=== PATIENT | female | born 2000 | race American Indian/Alaskan Native ===

== ENCOUNTER 2019-04-18 22:20 | Emergency (ER) | payer OTHER ==
[2019-04-19] MEDS ORDERED: KETOROLAC 30 MG/1 ML INJ IM ONE (02:00)
[2019-04-19] MEDS ORDERED: LIDOCAINE-MPF (1%) 10 MG/1 ML VIAL 5 ML INFILTRATI ONE (02:00)
[2019-04-19] MEDS ORDERED: LIDOCAINE VISCOUS 2% 15 ML ORAL LIQD PO ONE (02:00)
[2019-04-19] MEDS ORDERED: dexAMETHasone 20 MG/5 ML VIAL IM ONE (02:00)
--- NOTE | 2019-04-19 02:42 | Emergency Department Report ---
ED General Adult HPI - General Chief complaint: Sore Throat Stated complaint: EXTREMLY SWOLLEN THROAT/TATIANA Source: patient Mode of arrival: Ambulatory Limitations: No Limitations - History of Present Illness Initial comments: Patient is a nulliparous 19-year-old -[place] female with no past medical history who presents to the ED with complaint of acute onset persistent severe sore throat with dysphagia for the last 2 weeks, worse in the last 3 days. Patient states that she has taken 2 rounds of oral antibiotics with no relief. Patient states that she initially took a 7-day course of Augmentin followed by a 5-day course of azithromycin and states that in the last 3 days his pain and swelling have worsened. Patient denies fever, chills, nausea, vomiting, dizziness, chest pain, shortness of breath, change in vision, syncope or headache. MD Complaint: Sore throat; dysphagia -: Sudden, week(s) (2) Location: mouth Radiation: non-radiation Severity scale (0 -10): 8 Quality: aching, sharp Consistency: constant Improves with: none Worsens with: other (swallowing) Associated Symptoms: denies other symptoms. denies: confusion, chest pain, cough, diaphoresis, fever/chills, headaches, loss of appetite, malaise, nausea/vomiting, rash, seizure, syncope, weakness, other Treatments Prior to Arrival: NSAID - Related Data Previous Rx's Medication Instructions Recorded Last Taken Type Clindamycin [Clindamycin CAP] 300 mg PO Q6HR #80 capsule 04/19/19 Unknown Rx Ibuprofen [Motrin] 400 mg PO Q8H PRN #24 tablet 04/19/19 Unknown Rx Lidocaine Viscous 2% 5 ml PO Q6H PRN #120 ml 04/19/19 Unknown Rx methylPREDNISolone [Medrol 4MG 4 mg PO DAILY #21 tab.ds.pk 04/19/19 Unknown Rx DOSEPAK (21 tabs)] Allergies Allergy/AdvReac Type Severity Reaction Status Date / Time No Known Allergies Allergy Unverified 04/18/19 22:42 ED Review of Systems ROS: Stated complaint: EXTREMLY SWOLLEN THROAT/TATIANA Other details as noted in HPI Constitutional: denies: chills, fever Eyes: denies: eye pain, eye discharge, vision change ENT: throat pain, congestion. denies: ear pain Respiratory: denies: cough, shortness of breath, SOB with exertion, SOB at rest, wheezing Cardiovascular: denies: chest pain, palpitations Endocrine: no symptoms reported Gastrointestinal: denies: abdominal pain, nausea, diarrhea Genitourinary: denies: urgency, dysuria, discharge Musculoskeletal: denies: back pain, joint swelling, arthralgia Skin: denies: rash, lesions Neurological: denies: headache, weakness, paresthesias Psychiatric: denies: anxiety, depression Hematological/Lymphatic: denies: easy bleeding, easy bruising ED Past Medical Hx - Past Medical History Previous Medical History?: No - Surgical History Past Surgical History?: No - Social History Smoking Status: Never Smoker Substance Use Type: None - Medications Home Medications: Home Medications Medication Instructions Recorded Confirmed Last Taken Type Clindamycin [Clindamycin CAP] 300 mg PO Q6HR #80 capsule 04/19/19 Unknown Rx Ibuprofen [Motrin] 400 mg PO Q8H PRN #24 tablet 04/19/19 Unknown Rx Lidocaine Viscous 2% 5 ml PO Q6H PRN #120 ml 04/19/19 Unknown Rx methylPREDNISolone [Medrol 4MG 4 mg PO DAILY #21 tab.ds.pk 04/19/19 Unknown Rx DOSEPAK (21 tabs)] ED Physical Exam - General Limitations: No Limitations General appearance: alert, in no apparent distress - Head Head exam: Present: atraumatic, normocephalic, normal inspection - Eye Eye exam: Present: normal appearance, PERRL, EOMI Pupils: Present: normal accommodation - ENT ENT exam: Present: mucous membranes moist, TM's normal bilaterally, normal external ear exam, other (Swollen erythematous oropharynx and right tonsil with white exudates) - Neck Neck exam: Present: normal inspection, full ROM, lymphadenopathy. Absent: tenderness, meningismus - Respiratory Respiratory exam: Present: normal lung sounds bilaterally. Absent: respiratory distress, wheezes, rhonchi, stridor, chest wall tenderness, accessory muscle use, decreased breath sounds, prolonged expiratory - Cardiovascular Cardiovascular Exam: Present: regular rate, normal rhythm. Absent: systolic murmur, diastolic murmur, rubs, gallop - GI/Abdominal GI/Abdominal exam: Present: soft, normal bowel sounds - Extremities Exam Extremities exam: Present: normal inspection - Back Exam Back exam: Present: normal inspection - Neurological Exam Neurological exam: Present: alert, oriented X3 - Psychiatric Psychiatric exam: Present: normal affect, normal mood - Skin Skin exam: Present: warm, dry, intact, normal color. Absent: rash ED Course Vital Signs 04/18/19 04/19/19 04/19/19 22:28 02:15 03:14 Temperature 99.1 F 97.7 F Pulse Rate 121 H 97 H Respiratory 18 16 16 Rate Blood Pressure 137/92 Blood Pressure 121/71 [Left] O2 Sat by Pulse 100 98 Oximetry ED Medical Decision Making - Medical Decision Making This is a 19-year-old female who presented to the ED with persistent sore throat with dysphagia, and swollen right tonsils with white exudates. Patient has had 2 rounds of oral antibiotics with no relief. In the ED, patient is alert and oriented x3 and is not in distress but tachycardic and afebrile in triage. Patient was treated with Decadron, Rocephin 1 g intramuscular injection, viscous lidocaine 2% oral solution and Toradol. Patient was discharged home on clindamycin, Medrol Dosepak and ibuprofen and was referred to the ENT physician Dr. Ephraim Decker for follow-up. Patient was advised to contact Dr. Decker' office first thing in the morning to schedule follow-up appointment. Patient was also advised to return to the ED immediately if symptoms get worse. - Differential Diagnosis Strep pharyngitis; Tonsillitis; peritonsillar abscess; lymphadenopathy Critical care attestation.: If time is entered above; I have spent that time in minutes in the direct care of this critically ill patient, excluding procedure time. ED Disposition Clinical Impression: Acute bacterial pharyngitis, Acute bacterial tonsillitis, Anterior cervical lymphadenopathy Disposition: - TO HOME OR SELFCARE Is pt being admited?: No Does the pt Need Aspirin: No Condition: Stable Instructions: Pharyngitis (ED), Tonsillitis (ED) Additional Instructions: Take medication with food, drink plenty of fluids and follow-up with the ENT physician Dr. Ephraim Decker as advised. Contact Dr. Haro's office first thing in the morning to schedule a follow-up appointment. Return to the ED immediately if symptoms get worse. Prescriptions: Clindamycin [Clindamycin CAP] 300 mg PO Q6HR #80 capsule Lidocaine Viscous 2% 5 ml PO Q6H PRN #120 ml PRN Reason: Pain , Severe (7-10) methylPREDNISolone [Medrol 4MG DOSEPAK (21 tabs)] 4 mg PO DAILY #21 tab.ds.pk Ibuprofen [Motrin] 400 mg PO Q8H PRN #24 tablet PRN Reason: Pain , Severe (7-10) Referrals: CINDY HUNTER MD [Staff Physician] - [facility] Time of Disposition: 02:48 Print Language: URDU
[2019-04-19 04:00] VITALS: BP 121/71
== END 2019-04-19 03:18 | disposition home or self-care (01) ==
LOC: ED 22:20
DX: J02.8 Acute pharyngitis due to other specified organisms (principal); J03.80 Acute tonsillitis due to other specified organisms; B96.89 Other specified bacterial agents as the cause of diseases classified elsewhere; R59.1 Generalized enlarged lymph nodes
CPT/HCPCS: 36415; 86308; 96372; 99283; J0696; J1100; J1885